=== PATIENT | female | born 1970 | race Hispanic/Latino ===

== ENCOUNTER 2017-09-17 13:16 | Emergency (ER) | payer SELFPAY ==
[2017-09-17 13:22] VITALS: BP 146/79; PULSE 90; RESP 20; TEMP 97.8; O2SAT 100
[2017-09-17] MEDS ORDERED: Naproxen 550 mg Tab PO STA (13:44)
--- NOTE | 2017-09-17 13:47 | C.PDOC ---
History Of Present Illness 47 yo female, hx of hep c, presents with right sided upper back and "rib pain" x few days. no known trauma. pain worse with movement. 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 no fevers, no urinary changes, no hematuria. Time Seen by Provider: 09/17/17 13:23 Chief Complaint (Nursing): Chest Pain Past Medical History Reviewed: Historical Data, Nursing Documentation, Vital Signs Vital Signs: Last Vital Signs Temp 97.8 F 09/17/17 13:21 Pulse 90 09/17/17 13:21 Resp 20 09/17/17 13:21 BP 146/79 09/17/17 13:21 Pulse Ox 100 09/17/17 14:25 Surgical History: Tonsillectomy Family History: States: Unknown Family Hx - Social History Hx Alcohol Use: Yes Hx Substance Use: Yes - Immunization History Hx Tetanus Toxoid Vaccination: No Hx Influenza Vaccination: No Hx Pneumococcal Vaccination: No Review Of Systems Except As Marked, All Systems Reviewed And Found Negative. Musculoskeletal: Positive for: Back Pain (upper back and right rib) Physical Exam - Physical Exam Appears: Well, No Acute Distress, Other (sepaking full sentences joking with staff) Skin: Normal Color, Warm, Dry Eye(s): bilateral: Normal Inspection, PERRL, EOMI Nose: Normal Throat: Normal Neck: Normal Cardiovascular: Rhythm Regular Respiratory: Normal Breath Sounds Gastrointestinal/Abdominal: Normal Exam, Soft, No Tenderness, No Guarding, No Rebound Back: Normal Inspection, Paraspinal Tenderness (upper back) Extremity: Normal ROM ED Course And Treatment O2 Sat by Pulse Oximetry: 100 Medical Decision Making Medical Decision Making: pt PERC neg. speaking full sentences in nad. c/o of mild cough - will r/o pna vs pneumo vs msk pain. imaging neg as read by me. pain improved. right back sharp pain, intermittant. advise outpt f/u and return precautions. upon d/c pt reports ruq pain, with mild ttp. offered further lab work and imaging . pt declines. states she prefers to gohome and see her doctor. will return to er with worening symptoms or concerns. Disposition - Disposition Referrals: [facility] [Outside] [facility] [Outside] [facility] [Outside] Disposition: HOME/ ROUTINE Disposition Time: 14:01 Condition: STABLE Additional Instructions: please follow up wiht your doctor/clinic. return to er with worsening symptoms or concerns. Prescriptions: Naproxen [Naprosyn] 500 mg PO BID PRN #14 tab PRN Reason: Pain, Mild (1-3) Instructions: Back Pain (ED), Rib Contusion (ED) Forms: [facility] (Hebrew) - Clinical Impression Clinical Impression: Rib pain on right side
[2017-09-17 13:54] LABS: HCG,QUALITATIVE URINE NEGATIVE (NEGATIVE)
[2017-09-17] MEDS ORDERED: Naproxen 550 mg Tab PO ONE (13:56)
[2017-09-17 13:59] LABS: URINE BILIRUBIN NEGATIVE (NEGATIVE); URINE BLOOD TRACE (NEGATIVE); URINE CLARITY Clear (Clear); URINE COLOR Yellow (YELLOW); URINE GLUCOSE (UA) NORMAL (Normal); URINE LEUKOCYTE ESTERASE NEG Leu/uL (Negative); URINE NITRATE NEGATIVE (NEGATIVE); URINE PROTEIN NEGATIVE (NEGATIVE)
--- NOTE | 2017-09-17 15:22 | RAD ---
PROCEDURE: Radiographs of the Chest and Right Ribs. HISTORY: right sided rib Pain. No history of recent/ related trauma provided COMPARISON: None available. TECHNIQUE: Frontal radiograph of the chest and multiple oblique radiographs of the right ribs were obtained. FINDINGS: RIGHT RIBS: No fracture or focal lesion visualized. LUNGS: Clear. PLEURA: No pneumothorax or pleural fluid. CARDIOVASCULAR: Normal sized heart. No pulmonary vascular congestion. OTHER FINDINGS: None. IMPRESSION: Unremarkable radiographs of the chest and right ribs. No right rib fracture. Concordant results with the preliminary interpretation rendered by the emergency department physician procedure.
== END 2017-09-17 14:38 | disposition home or self-care (01) ==
LOC: C.ER 13:16
DX: R07.81 Pleurodynia (principal)